=== PATIENT | female | born 1980 | race Caucasian/White ===

== ENCOUNTER 2017-08-24 10:51 | Day surgery (SDC) | payer OTHER, SELFPAY ==
[~2017-08-24] VITALS: Ht 149.9 cm; Wt 57.3 kg
[~2017-08-24 10:51] MED LIST: ALBU90OI61 INH; ALPR1 PO; AMIT50 PO; AZAT50 PO; AZIT250 PO; COLC.6 PO; ETAN25I SC; FOLI1 PO; LIDO2TG30 TOP; METTREX2.5 PO; MULVITMINE; Monodox100 MG PO; Norco 5-325 Ta1 EACH PO; OXYACE5T PO; PENT400ER; POLTRIOPSO OS; PROCODE120 PO; PROM25 PO; RANI150 PO; SERT100 PO; Zofran Odt4 MG SL; [UNRECOGNIZED DRUG - OTHER]; [UNRECOGNIZED DRUG - OTHER]; [UNRECOGNIZED DRUG - OTHER] OS
[2017-08-24] MEDS ORDERED: AMIT75 (11:25)
== END 2017-08-24 13:38 | disposition home or self-care (01) ==
LOC: ORSCSDS 10:51
PROVIDERS: Podiatrist
PROC: 0QBR0ZZ Excision of Left Toe Phalanx, Open Approach (ICD-10-PCS; principal; 2017-08-24 12:00)
PROC: 0SRQ0JZ Replacement of Left Toe Phalangeal Joint with Synthetic Substitute, Open Approach (ICD-10-PCS; principal; 2017-08-24 12:00)
DX: M20.42 Other hammer toe(s) (acquired), left foot (principal); M89.9 Disorder of bone, unspecified; L84 Corns and callosities; J45.909 Unspecified asthma, uncomplicated; K21.9 Gastro-esophageal reflux disease without esophagitis; Z79.899 Other long term (current) drug therapy
CPT/HCPCS: J0690; J1100; J1885; J2250; J2405; J3010

== ENCOUNTER 2017-09-23 13:50 | Observation (INO) | payer OTHER ==
[~2017-09-23] VITALS: Ht 149.9 cm; Wt 58.6 kg
[~2017-09-23 13:50] MED LIST changes: +AMIT75
[2017-09-23] MEDS ORDERED: PRED20 PO (14:40)
[2017-09-23 15:15] LABS: BASOPHILS ABSOLUTE AUTO 0.07 K/mm3 (0.00-0.23); BASOPHILS PERCENT AUTO 1 % (0-2); EOSINOPHILS ABSOLUTE AUTO 0.04 K/mm3 (0.00-0.68); EOSINOPHILS PERCENT AUTO 0 % (0-6); Hematocrit 42.5 % (33.0-51.0); Hemoglobin 14.3 g/dL (11.5-16.0); IMMATURE GRAN ABSOLUTE AUTO 0.05 K/mm3 (0.00-0.10); IMMATURE GRAN PERCENT AUTO 0 % (0-1); LYMPHOCYTES ABSOLUTE AUTO 1.65 K/mm3 (0.84-5.20); LYMPHOCYTES PERCENT AUTO 14 % (21-46); MONOCYTES ABSOLUTE AUTO 0.33 K/mm3 (0.16-1.47); MONOCYTES PERCENT AUTO 3 % (4-13); Mean Corpuscular HGB 28.8 pg (26.0-34.0); Mean Corpuscular HGB Conc 33.6 g/dL (31.5-36.5); Mean Corpuscular Volume 86 fL (80-100); Mean Platelet Volume 10.1 fL (9.1-12.4); NEUTROPHILS ABSOLUTE AUTO 9.72 K/mm3 (1.96-9.15); NEUTROPHILS PERCENT AUTO 82 % (41-73); Platelet Count 235 K/mm3 (150-400); RDW Coefficient Variation 12.2 % (11.7-14.2); RDW Standard Deviation 37.9 fL (35.1-46.3); Red Blood Cell Count 4.97 M/mm3 (3.80-5.20); White Blood Cell Count 11.86 K/mm3 (4.00-11.30)
[2017-09-23 15:28] LABS: Alanine Aminotransfer (ALT/SGP 14 U/L (12-78); Albumin, Blood 4.1 g/dL (3.4-5.0); Alk Phos 41 U/L (50-136); Anion Gap 9 mmol/L (6-16); Aspartate Aminotrans (AST/SGOT 9 U/L (12-37); Bilirubin, Total 0.9 mg/dL (0.1-1.0); Blood Urea Nitrogen 10 mg/dL (8-24); Bun/Creatinine Ratio 17.5 (12.0-20.0); CO2, Blood 23 mmol/L (21-32); Chloride, Blood 106 mmol/L (98-108); Creatinine, Blood 0.57 mg/dL (0.40-1.00); Glomerular Filtration Rate >60 (60-); Glucose, Blood 99 mg/dL (70-99); Potassium, Blood 3.7 mmol/L (3.5-5.5); Sodium, Blood 138 mmol/L (136-145); Total Protein, Blood 8.1 g/dL (6.4-8.2)
[2017-09-23] MEDS ORDERED: Enbrel50 MG/1 M1 (18:32)
[2017-09-23 22:11] LABS: Hematocrit 38.6 % (33.0-51.0); Hemoglobin 13.6 g/dL (11.5-16.0); Mean Corpuscular HGB 28.9 pg (26.0-34.0); Mean Corpuscular HGB Conc 35.2 g/dL (31.5-36.5); Mean Corpuscular Volume 82 fL (80-100); Mean Platelet Volume 10.3 fL (9.1-12.4); Platelet Count 233 K/mm3 (150-400); RDW Coefficient Variation 11.9 % (11.7-14.2); RDW Standard Deviation 35.8 fL (35.1-46.3); Red Blood Cell Count 4.71 M/mm3 (3.80-5.20); White Blood Cell Count 10.67 K/mm3 (4.00-11.30)
[2017-09-24 04:44] LABS: Hematocrit 38.6 % (33.0-51.0); Mean Corpuscular HGB 28.2 pg (26.0-34.0); Mean Corpuscular HGB Conc 33.7 g/dL (31.5-36.5); Mean Corpuscular Volume 84 fL (80-100); Mean Platelet Volume 10.4 fL (9.1-12.4); Platelet Count 235 K/mm3 (150-400); RDW Coefficient Variation 12.1 % (11.7-14.2); RDW Standard Deviation 36.6 fL (35.1-46.3); Red Blood Cell Count 4.61 M/mm3 (3.80-5.20); White Blood Cell Count 14.31 K/mm3 (4.00-11.30)
[2017-09-24 05:01] LABS: Anion Gap 7 mmol/L (6-16); Blood Urea Nitrogen 7 mg/dL (8-24); Bun/Creatinine Ratio 15.3 (12.0-20.0); CO2, Blood 27 mmol/L (21-32); Calcium, Blood 8.5 mg/dL (8.5-10.1); Chloride, Blood 108 mmol/L (98-108); Creatinine, Blood 0.46 mg/dL (0.40-1.00); Glomerular Filtration Rate >60 (60-); Glucose, Blood 103 mg/dL (70-99); Potassium, Blood 3.9 mmol/L (3.5-5.5); Sodium, Blood 142 mmol/L (136-145)
[2017-09-25 21:25] LABS: Source, Urine Clean Catch
[2017-09-25 21:28] LABS: Bilirubin, Urine Neg (Neg); Blood, Urine 4+ (Neg); Glucose Qualitative, Urine Neg (Neg); Ketones, Urine Neg (Neg); Leukocyte Esterase, Urine Neg (Neg); Nitrite, Urine Neg (Neg); Protein, Urine Neg (Neg); Specific Gravity, Urine 1.015 (1.003-1.022); Urobilinogen, Urine NORM (Normal)
[2017-09-25 21:31] LABS: Appearance, Urine Clear (Clear); Color, Urine Yellow (P-Yellow)
[2017-09-25 21:40] LABS: Bacteria Mod /hpf; Squamous Epithelial Cells Few /hpf (Few); White Blood Cells, Urine 0-2 /hpf (0-5)
[2017-09-26] MEDS ORDERED: NITR100CA PO (10:09)
[2017-09-26] MEDS ORDERED: PRED20 PO (10:10)
== END 2017-09-26 10:40 | disposition home or self-care (01) ==
LOC: ER 13:50 → SURS 13:51 → MEDS 13:51 → SURS 18:28
PROVIDERS: Emergency Medicine; Family Medicine; Internal Medicine; Internal Medicine Gastroenterology
PROC: 0DBN8ZX Excision of Sigmoid Colon, Via Natural or Artificial Opening Endoscopic, Diagnostic (ICD-10-PCS; 2017-09-25)
PROC: 0DBE8ZX Excision of Large Intestine, Via Natural or Artificial Opening Endoscopic, Diagnostic (ICD-10-PCS; 2017-09-25)
PROC: 0DB98ZX Excision of Duodenum, Via Natural or Artificial Opening Endoscopic, Diagnostic (ICD-10-PCS; principal; 2017-09-25 17:00)
PROC: 0DB68ZX Excision of Stomach, Via Natural or Artificial Opening Endoscopic, Diagnostic (ICD-10-PCS; 2017-09-25 17:00)
PROC: 0DB58ZX Excision of Esophagus, Via Natural or Artificial Opening Endoscopic, Diagnostic (ICD-10-PCS; 2017-09-25 17:00)
DX: K63.5 Polyp of colon (principal); M35.2 Behcet's disease; K64.8 Other hemorrhoids; K57.30 Diverticulosis of large intestine without perforation or abscess without bleeding; K92.1 Melena; R33.9 Retention of urine, unspecified; E86.0 Dehydration; Z98.890 Other specified postprocedural states
CPT/HCPCS: 36415; 80048; 80053; 81001; 85025; 85027; 86850; 86900; 86901; 87086; 88305; 88342; 96374; 99285; C9113; G0378; J2405; J3010; J7030; J7120

== ENCOUNTER → 2017-11-22 | Outpatient (CLI) | payer OTHER ==
[~2017-11-22] MED LIST changes: +Enbrel50 MG/1 M1; +NITR100CA PO; +PRED20 PO
== END | disposition home or self-care (01) ==
LOC: LAB SHORT 16:46 → LAB 16:46
PROVIDERS: Obstetrics & Gynecology Gynecology
DX: Z12.4 Encounter for screening for malignant neoplasm of cervix (principal)
CPT/HCPCS: 87624; G0123

== ENCOUNTER 2018-07-28 12:14 | Inpatient (IN) | payer OTHER ==
[~2018-07-28] VITALS: Ht 149.9 cm; Wt 48.5 kg
[~2018-07-28 12:14] MED LIST changes: -AMIT75; +AMIT75 PO
[2018-07-28 12:58] LABS: BASOPHILS ABSOLUTE AUTO 0.04 K/mm3 (0.00-0.23); BASOPHILS PERCENT AUTO 1 % (0-2); EOSINOPHILS ABSOLUTE AUTO 0.15 K/mm3 (0.00-0.68); EOSINOPHILS PERCENT AUTO 2 % (0-6); Hematocrit 40.1 % (33.0-51.0); Hemoglobin 13.6 g/dL (11.5-16.0); IMMATURE GRAN ABSOLUTE AUTO 0.02 K/mm3 (0.00-0.10); IMMATURE GRAN PERCENT AUTO 0 % (0-1); LYMPHOCYTES ABSOLUTE AUTO 2.79 K/mm3 (0.84-5.20); LYMPHOCYTES PERCENT AUTO 45 % (21-46); MONOCYTES ABSOLUTE AUTO 0.44 K/mm3 (0.16-1.47); MONOCYTES PERCENT AUTO 7 % (4-13); Mean Corpuscular HGB 28.8 pg (26.0-34.0); Mean Corpuscular HGB Conc 33.9 g/dL (31.5-36.5); Mean Corpuscular Volume 85 fL (80-100); Mean Platelet Volume 9.9 fL (9.1-12.4); NEUTROPHILS ABSOLUTE AUTO 2.76 K/mm3 (1.96-9.15); NEUTROPHILS PERCENT AUTO 45 % (41-73); Platelet Count 188 K/mm3 (150-400); RDW Coefficient Variation 13.1 % (11.7-14.2); RDW Standard Deviation 39.8 fL (35.1-46.3); Red Blood Cell Count 4.73 M/mm3 (3.80-5.20)
[2018-07-28 13:18] LABS: Alanine Aminotransfer (ALT/SGP 18 U/L (12-78); Albumin, Blood 3.7 g/dL (3.4-5.0); Albumin/Globulin Ratio 0.8 (0.8-1.8); Alk Phos 40 U/L (50-136); Anion Gap 9 mmol/L (6-16); Aspartate Aminotrans (AST/SGOT 15 U/L (12-37); Bilirubin, Total 0.5 mg/dL (0.1-1.0); Blood Urea Nitrogen 7 mg/dL (8-24); CO2, Blood 20 mmol/L (21-32); Calcium, Blood 8.3 mg/dL (8.5-10.1); Chloride, Blood 109 mmol/L (98-108); Creatinine, Blood 0.59 mg/dL (0.40-1.00); Globulin, Blood 4.5 g/dL (2.2-4.0); Glomerular Filtration Rate >60 (60-); Glucose, Blood 100 mg/dL (70-99); Potassium, Blood 3.1 mmol/L (3.5-5.5); Sodium, Blood 138 mmol/L (136-145); Total Protein, Blood 8.2 g/dL (6.4-8.2); Troponin I <0.015 ng/mL (0.000-0.040)
[2018-07-28 13:37] LABS: Influenza A Negative (NEGATIVE); Influenza B Negative (NEGATIVE)
[2018-07-28 14:07] LABS: PO2 Arterial 112 mmHg (80-100)
[2018-07-28 14:08] LABS: PCO2 Arterial 16 mmHg (35-45); pH Blood Arterial 7.62 (7.35-7.45)
[2018-07-28] MEDS ORDERED: Remicade100 MG IV (16:46)
[2018-07-28] MEDS ORDERED: PRED5 PO (16:48)
[2018-07-28] MEDS ORDERED: AZAT50 PO (16:49)
[2018-07-28] MEDS ORDERED: VITAMIN D50000 UNIT PO (16:51)
[2018-07-28 18:03] LABS: Source, Urine Clean Catch
[2018-07-28 18:32] LABS: Appearance, Urine Hazy (Clear); Bilirubin, Urine Neg (Neg); Blood, Urine Neg (Neg); Color, Urine Yellow (P-Yellow); Glucose Qualitative, Urine Neg (Neg); Ketones, Urine 2+ (Neg); Leukocyte Esterase, Urine 1+ (Neg); Nitrite, Urine Neg (Neg); Protein, Urine Neg (Neg); Specific Gravity, Urine 1.015 (1.003-1.022); Urobilinogen, Urine NORM (Normal)
[2018-07-28 18:48] LABS: U Amphetamine Screen Not Detected; U Barbituate Screen Not Detected; U Benzodiazapine Screen Not Detected; U Buprenorphine Screen Not Detected; U Cannabinoids Screen DETECTED; U Cocaine Screen Not Detected; U Methadone Screen Not Detected; U Methamphetamine Screen Not Detected; U Opiates Screen Not Detected; U Oxycodone Screen Not Detected; U Phencyclidine Screen Not Detected; U Propoxyphene Screen Not Detected
[2018-07-28 18:57] LABS: Bacteria Not Seen /hpf; Red Blood Cells, Urine Not Seen /hpf (0-2); Squamous Epithelial Cells Many /hpf (Few); White Blood Cells, Urine 0-2 /hpf (0-5)
--- NOTE | 2018-07-28 19:13 | NUR ---
SHE ARRIVED TO PCU 12 AT 1635. LUNGS DIMINISHED WITH SOME WHEEZES AND COARSENESS SCATTERED BILATERALLY. RESPIRATIONS ARE SHALLOW. BIOX WNL. RATE STABLE. A&O. PLEASANT. FAMILY ARRIVED ABOUT 40 MINUTES LATER. CONTINUOUS BIOX STARTED. SINUS TACH AT 121. ORIENTED TO ROOM. CALL LIGHT IN REACH. LATER AT 1840 SHE BECAME TACHYPNEIC AND TACHYCARDIC UP TO 160 BTS/MIN. O2 PUT ON AT 2L. I CALLED RT FOR A NEB TREATMENT. CALL PUT OUT TO MD. SHE RECEIVED ATIVAN IN ER. IT SETTLED HER DOWN. SHE HAS NONE ORDERED HERE. MRSA CLEARANCE SWABS DONE AND SENT TO LAB.
[2018-07-29 04:42] LABS: BASOPHILS ABSOLUTE AUTO 0.01 K/mm3 (0.00-0.23); BASOPHILS PERCENT AUTO 0 % (0-2); EOSINOPHILS PERCENT AUTO 0 % (0-6); Hematocrit 36.1 % (33.0-51.0); Hemoglobin 12.2 g/dL (11.5-16.0); IMMATURE GRAN ABSOLUTE AUTO 0.03 K/mm3 (0.00-0.10); IMMATURE GRAN PERCENT AUTO 0 % (0-1); LYMPHOCYTES ABSOLUTE AUTO 0.73 K/mm3 (0.84-5.20); LYMPHOCYTES PERCENT AUTO 7 % (21-46); MONOCYTES ABSOLUTE AUTO 0.13 K/mm3 (0.16-1.47); MONOCYTES PERCENT AUTO 1 % (4-13); Mean Corpuscular HGB 28.7 pg (26.0-34.0); Mean Corpuscular HGB Conc 33.8 g/dL (31.5-36.5); Mean Corpuscular Volume 85 fL (80-100); Mean Platelet Volume 10.3 fL (9.1-12.4); NEUTROPHILS ABSOLUTE AUTO 8.92 K/mm3 (1.96-9.15); NEUTROPHILS PERCENT AUTO 91 % (41-73); Platelet Count 172 K/mm3 (150-400); RDW Coefficient Variation 13.3 % (11.7-14.2); RDW Standard Deviation 40.6 fL (35.1-46.3); Red Blood Cell Count 4.25 M/mm3 (3.80-5.20); White Blood Cell Count 9.82 K/mm3 (4.00-11.30)
[2018-07-29 04:49] LABS: Alanine Aminotransfer (ALT/SGP 16 U/L (12-78); Albumin, Blood 3.2 g/dL (3.4-5.0); Albumin/Globulin Ratio 0.8 (0.8-1.8); Alk Phos 37 U/L (50-136); Anion Gap 7 mmol/L (6-16); Aspartate Aminotrans (AST/SGOT 10 U/L (12-37); Bilirubin, Total 0.9 mg/dL (0.1-1.0); Blood Urea Nitrogen 7 mg/dL (8-24); Bun/Creatinine Ratio 13.1 (12.0-20.0); CO2, Blood 21 mmol/L (21-32); Calcium, Blood 8.1 mg/dL (8.5-10.1); Chloride, Blood 113 mmol/L (98-108); Creatinine, Blood 0.54 mg/dL (0.40-1.00); Globulin, Blood 4.1 g/dL (2.2-4.0); Glomerular Filtration Rate >60 (60-); Glucose, Blood 117 mg/dL (70-99); Potassium, Blood 4.3 mmol/L (3.5-5.5); Sodium, Blood 141 mmol/L (136-145); Total Protein, Blood 7.3 g/dL (6.4-8.2)
--- NOTE | 2018-07-29 05:43 | NUR ---
SHIFT SUMMARY: PATIENT RECIEVED ATIVAN X1 PER MD ORDERS. APPROX 1HR LATER PATIENT HR IN 60'S AND 70'S AND PATIENT SLEEPING WELL. PATIENT UP TO BATHROOM X2 THIS SHIFT WITH NO ISSUES. VSS, CALL LIGHT WITHIN REACH AND USED APPROPRIATLY, BED LOW AND LOCKED AND MONITORING CLOSELY.
--- NOTE | 2018-07-29 08:50 | NUR ---
bladder scan Pt related that when she has a uti she can't void. She voided 100ml. Did a bladder scan post void. 512 ml per scanner. Pt requested a dorsey. Continue pot.
--- NOTE | 2018-07-29 14:00 | NUR ---
POST VOID BLADDER SCAN POST VOID OF 600ML. SCANNED FOR 300ML. CONTINUE POT.
--- NOTE | 2018-07-29 17:02 | NUR ---
Evening note Pt alert and oriented. Talking a blue streak with her family. No desats or HR elevation unless she moves. HR varies between 90 (when she's alone) and 110+ when family is at bedside. PT tolerated CT scan well. Pt up to bathroom. Voiding large amounts of clear, yellow urine. IVF infusing. No cough. Weaned to RA. Lungs cta. Voice quality clear and strong. Continue pot.
--- NOTE | 2018-07-29 23:24 | NUR ---
Pt gave this student permission to look through her medical records and provide care tomorrow Jul 30, 2018.
--- NOTE | 2018-07-29 23:57 | NUR ---
AT ABOUT 1950 PT COMPLAINED OF CHEST PAIN. PT REPORTS THAT PAIN IS SHARP AT CENTER OF CHEST, DOES NOT CHANGE WITH DEEP BREATH. PT DENIES NAUSEA, NO SWEATING NOTED. PER TELE SINUS TACH, NO CHANGE HEART RYTHUM, HR 120-130, PT REPORTS ANXIETY,RR 22, ALL OTHER VSS. PT ABOUT TO RECIEVE BREATHING TREATMENT, WILL MONITOR TELE AND PT STATUS.
--- NOTE | 2018-07-30 00:03 | NUR ---
PT CONTINUED TO REPORT CP AFTER BREATHING TREATMENT. NO CHANGE IN PT DISCRIBED SYMPTOMS. DR. NEELY NOTIFIED AND RECOMMENDED AN ADDTIONAL BREATHING TREATMENT. TREATMENT GIVEN AND PT ENCOURAGED TO RELAX, SHE STILL SEEMED PRETTY ANXIOUS. HR 110-130. PT ABLE TO CALM DOWN AND REST AFTER TREATMENT AND REPORTED NO MORE CHEST PAIN AT ABOUT 2130. WILL CONTINUE TO MONITOR PT STATUS, PT HR CURRENTLY 114, PT AT APPEARS TO BE SLEEPING
--- NOTE | 2018-07-30 04:17 | NUR ---
SUMMARY: SEE PREVIOUS NOTES. NO FUTHER COMPLAINT OF CHEST PAIN THIS SHIFT. PT GIVEN 0.25MG OF ATIVAN AND ABLE TO SLEEP. HR TRENDED DOWN WHILE ASLEEP. VSS THIS AM. PT CONTINUES ON RA, LUNGS CLEAR. PRN BREATHING TREATMENTS. PT HAS DENIED SOB TONIGHT. ABLE TO VOID, UP TO COMMODE WITH SBA. A/O USING CALL LIGHT. NO ACUTE SAFETY CONCERNS AT THIS TIME
--- NOTE | 2018-07-30 10:25 | NUR ---
Patient was lying in bed and alert as I entered the room. I introduced myself and patient welcomed me in. Therapeutic alliance was easily established as pateint openly shared about her health history, her so and her emotional struggles. I listened empathically, I facilitated life review, explored her belief system, reinforced helpful attitudes and practices and provided prayer. Patient responded well and showed signs of restored health, reduced stress and renwewed hope. Patient expressed gratitude for the visit.
--- NOTE | 2018-07-30 17:48 | NUR ---
BLADDER SCAN POST VOID 376 ML. PT DOESN'T FEEL LIKE SHE NNEDS TO VOID. CONTINUE POT.
--- NOTE | 2018-07-30 19:30 | NUR ---
ASSUMING CARE OF PT AT THIS TIME. PT REPORT RECEIVED AT BEDSIDE WITH OFFGOING NURSE, LIBBY ROMANO. PT LAYING IN BED, WATCHING TELEVISION UPON ENTERING THE ROOM. VS STABLE - SEE VS FS. PT DOES NOT APPEAR TO BE IN DISTRESS AT THIS TIME. WILL REVIEW PLAN OF CARE.
--- NOTE | 2018-07-30 19:45 | NUR ---
ASSESSMENT PT CALM, QUIET, COOPERATIVE, OCC ANXIETY, RESPONDS TO VERBAL STIMULI, SPONT OPENS EYES, A&O X4, COMMUNICATES NEEDS. SENSATION INTACT. DENIES N/T. PT BAH. NO WEAKNESS NOTED. PT REPOSITIONS SELF IN BED. PT AMBULATES SELF. PT DENIES PAIN/DISCOMFORT. NO S/SX OF PAIN/DISCOMFORT NOTED. LUNGS CLEAR, LOWER LOBES DIMINISHED. PT ON RA. OXY SAT >95%. RR 14. DYSPNEA AND TACHYPNEA WITH EXERTION. SHALLOW BREATHING. PT STATES "FEELING WHEEZY" AND REQUESTED BREATHING TX UPON ASSUMING CARE OF PT. NO WHEEZING NOTED AT THIS TIME. NO SOB AT REST. AFEBRILE. ST. HR 110'S. BP STABLE - SEE VS FS. INCREASED HR NOTED WITH ACTIVITY. STRONG PULSES. WARM, PINK SKIN. ACTIVE BT X4 QUADRANTS. ABD SOFT, NONTENDER. PT STATES ABD DIST IS NORMAL. NO N/V. NO BM. PER REPORT - PT HAS BEEN EXPERIEICING URINARY RETENTION. WILL BLADDER SCAN POST VOID. PT HAS BATHROOM PRIVELEGES - CLEAR, YELLOW URINE NOTED. WILL COMPLETE BLADDER TRAINING. PIV X1 - SL.
--- NOTE | 2018-07-31 06:04 | NUR ---
SHIFT ASSESSMENT NO ACUTE CHANGES NOTED T/O SHIFT. PT CALM, QUIET, COOPERATIVE, OCC ANXIETY (PRN ATIVAN ADMINISTERED), RESPONDS TO VERBAL STIMULI, SPONT OPENS EYES, A&O X4, COMMUNICATES NEEDS. SENSATION INTACT. DENIES N/T. PT BAH. NO WEAKNESS NOTED. PT REPOSITIONS SELF. PT AMBULATES SELF. PT DENIED PAIN/DISCOMFORT. NO S/SX OF PAIN/DISCOMFORT NOTED. LUNGS CLEAR, LOWER LOBES DIMINIHSED. PT ON RA. OXY SAT >95%. RR 12 TO 14. DYSPNEA AND TACHYPNEA WITH EXERTION. SHALLOW BREATHING. LESS DYSPNEA AND TACHYPNEA NOTED THIS AM WITH EXERTION. NO SOB AT REST. AFEBRILE. SR TO ST. HR 70'S TO 110'S. INCREASED HR NOTED WITH ACTIVITY. BP STABLE - SEE VS FS. STRONG PULSES. WARM, PINK SKIN. STRONG PULSES. WARM, PINK SKIN. ACTIVE BT X4 QUADRANTS. ABD SOFT, NONTENDER. PT STATES ABD DIST IS NORMAL. NO N/V. URINARY RENTENTION. COMPLETED BLADDER SCANS POST VOID. PT HAS BATHROOM PRIVELEGES - CLEAR, YELLOW URINE NOTED. PT VOIDED LAST AT 0600 WHEN PT VOIDED 600 ML. POST BLADDER SCAN AT 0600 WAS 67 ML. HOWEVER, AT 0430 PT VOIDED 540 ML. POST BLADDER SCAN AT 0430 WAS 437 ML. PT STATED, "I DON'T FEEL LIKE I HAVE TO GO PEE". PT VOIDED ADDITIONAL 300 ML AT 0440. POST BLADDER SCAN AT 0440 WAS 127 ML. PIV X1 - SL. WILL CONT TO MONITOR PT AND WILL PROVIDE BEDSIDE REPORT TO ONCOMING NURSE THIS AM.
--- NOTE | 2018-07-31 06:30 | NUR ---
PT CARE PT OOB FOR BATHROOM PRIVELGES. PT VOIDS 540 ML AT THIS TIME. POST VOID BLADDER SCAN WAS 173 ML. INCREASED RR 20'S. PT C/O DYSPNEA WITH EXERTION AND REQUESTED BREATHING TX. RT CHRISTA NOTIFIED OF BREATHING TX. WAITING FOR RT AT THIS TIME. HR INCREASED 150'S DURING AMBULATION. HR CURRENTLY 70'S TO 80'S.
--- NOTE | 2018-07-31 08:30 | NUR ---
Initial assessment: Pt sitting up in bed. Tachypnic at this time. LS clear with faint insp wheeze in upper lobes. States that she is feeling a little SOB. RT called for a breathing treatment. BIox 98% on RA. Pt is coughing up stallworth appearing sputum. Will send sputum culture. HR reg. BT positive. Pulses palp. Pt states that she is having some sharp, stabbing pain to L lower chest "just under my L breast". states the pain is sharpest right after coughing. Rates it a 4/10. VSS. Pt has call light in reach. Will continue to monitor.
[2018-07-31 09:06] LABS: BASOPHILS ABSOLUTE AUTO 0.01 K/mm3 (0.00-0.23); BASOPHILS PERCENT AUTO 0 % (0-2); EOSINOPHILS PERCENT AUTO 0 % (0-6); Hematocrit 37.8 % (33.0-51.0); Hemoglobin 12.6 g/dL (11.5-16.0); IMMATURE GRAN ABSOLUTE AUTO 0.06 K/mm3 (0.00-0.10); IMMATURE GRAN PERCENT AUTO 1 % (0-1); LYMPHOCYTES ABSOLUTE AUTO 3.52 K/mm3 (0.84-5.20); LYMPHOCYTES PERCENT AUTO 30 % (21-46); MONOCYTES ABSOLUTE AUTO 0.82 K/mm3 (0.16-1.47); MONOCYTES PERCENT AUTO 7 % (4-13); Mean Corpuscular HGB 28.1 pg (26.0-34.0); Mean Corpuscular HGB Conc 33.3 g/dL (31.5-36.5); Mean Corpuscular Volume 84 fL (80-100); Mean Platelet Volume 10.3 fL (9.1-12.4); NEUTROPHILS ABSOLUTE AUTO 7.53 K/mm3 (1.96-9.15); NEUTROPHILS PERCENT AUTO 63 % (41-73); Platelet Count 210 K/mm3 (150-400); RDW Coefficient Variation 13.9 % (11.7-14.2); RDW Standard Deviation 42.5 fL (35.1-46.3); Red Blood Cell Count 4.48 M/mm3 (3.80-5.20); White Blood Cell Count 11.94 K/mm3 (4.00-11.30)
--- NOTE | 2018-07-31 12:55 | NUR ---
Patient was lying in bed and alert when I entered the room. Patient remembered me from a prior visit. Patient stated that she had a rough night and had to have an extended stay in the hospital. Patient shared her current struggle with the emotional issues involved in long difficult physical pain and limitations. I litened empathically, provided spiritual direction provided inspirational guitar and singing and prayer. Patient responed well to all interventions and displayed evidence of restored so and reduced stress. Patient expressed gratitude for the visit.
[2018-07-31] MEDS ORDERED: TAMS.4ER PO (16:00)
[2018-07-31] MEDS ORDERED: ALBU90OI INH (16:01)
[2018-07-31] MEDS ORDERED: ALPR.5 PO (16:02)
[2018-07-31] MEDS ORDERED: VENL37.5 PO (16:03)
[2018-07-31] MEDS ORDERED: AZIT250 PO (16:04)
[2018-07-31] MEDS ORDERED: GUAI600T33 PO (16:05)
[2018-07-31] MEDS ORDERED: PRED10 PO (16:06)
[2018-07-31] MEDS ORDERED: ALBU2.5V5 NEB (16:09)
--- NOTE | 2018-07-31 16:50 | NUR ---
DISCHARGE: Pt given verbal and written discharge instructions, verbalized understanding, denies questions. RX were faxed and then called to [facility] [address]. Pt knows to follow up with physicians within one week. Stable at time of discharge. Left via w/c with DOCUMENT IMPROVEMENT SPECIALIST.
[2018-08-03 10:11] LABS: AMITRIPTYLINE Negative (Cutoff=100); CLOMIPRAMINE Negative (Cutoff=100); CYCLOBENZAPRINE Negative (Cutoff=100); DESIPRAMINE Negative (Cutoff=100); DOXEPIN Negative (Cutoff=100); IMIPRAMINE Negative (Cutoff=100); NORDOXEPIN Negative (Cutoff=100); NORTRIPTYLINE Positive (.); NORTRIPTYLINE CONF 219 ng/mL (Cutoff=100); PROTRIPTYLINE Negative (Cutoff=100); TRICYCLIC ANTIDEP Positive ng/mL (Cutoff=100); TRIMIPRAMINE Negative (Cutoff=100)
== END 2018-07-31 16:44 | disposition home or self-care (01) | DRG 202 ==
LOC: ER 12:14 → PCU 14:45
PROVIDERS: Emergency Medicine; Family Medicine; ADMIT Internal Medicine
DX: J98.09 Other diseases of bronchus, not elsewhere classified (principal); E87.2 Acidosis; M35.2 Behcet's disease; R00.0 Tachycardia, unspecified; F12.90 Cannabis use, unspecified, uncomplicated; T48.6X5A Adverse effect of antiasthmatics, initial encounter; Y92.9 Unspecified place or not applicable; R06.4 Hyperventilation; R33.9 Retention of urine, unspecified; F41.9 Anxiety disorder, unspecified; E87.6 Hypokalemia; J40 Bronchitis, not specified as acute or chronic; D89.9 Disorder involving the immune mechanism, unspecified; E86.9 Volume depletion, unspecified
CPT/HCPCS: 36415; 36600; 51701; 71045; 71275; 80053; 80369; 81001; 81025; 82803; 83735; 84443; 84484; 85025; 85379; 87081; 87086; 87804; 93005; 93010; 93306; 94640; 94644; 94760; 94762; 96361; 96374; 96375; 99284-25; G0480; G0481; J1650; J1956; J2060; J2405; J2930; J3010; J3480; Q9967

== ENCOUNTER 2018-11-01 06:25 | Emergency (ER) | payer OTHER ==
[~2018-11-01] VITALS: Ht 149.9 cm; Wt 59.0 kg
[~2018-11-01 06:25] MED LIST changes: +ALBU2.5V5 NEB; +ALBU90OI INH; +ALPR.5 PO; +GUAI600T33 PO; +PRED10 PO; +PRED5 PO; +Remicade100 MG IV; +TAMS.4ER PO; +VENL37.5 PO; +VITAMIN D50000 UNIT PO
== END 2018-11-01 07:36 | disposition home or self-care (01) ==
LOC: ER 06:25
DX: S00.86XA Insect bite (nonvenomous) of other part of head, initial encounter (principal); Z79.52 Long term (current) use of systemic steroids; Z79.2 Long term (current) use of antibiotics; W57.XXXA Bitten or stung by nonvenomous insect and other nonvenomous arthropods, initial encounter
CPT/HCPCS: 10120; 99282-25

== ENCOUNTER → 2019-02-01 | Outpatient (CLI) | payer OTHER ==
[2019-02-04 19:05] LABS: HPV 16 Negative (Negative); HPV 18 Negative (Negative); HPV OTHER HR TYPES Negative (Negative)
== END | disposition home or self-care (01) ==
LOC: LAB 13:57 → LAB SHORT 13:57
PROVIDERS: Obstetrics & Gynecology Gynecology
DX: Z12.4 Encounter for screening for malignant neoplasm of cervix (principal)
CPT/HCPCS: 87624; G0123

== ENCOUNTER → 2019-02-06 | Outpatient (CLI) | payer OTHER | LOC: PLD 08:09 → LAB SHORT 08:09 | DX: L30.8 Other specified dermatitis (principal) | CPT/HCPCS: 88305; 88312 ==

== ENCOUNTER 2019-02-08 07:54 | Day surgery (SDC) | payer OTHER ==
[~2019-02-08] VITALS: Ht 149.9 cm; Wt 56.6 kg
[2019-02-08] MEDS ORDERED: FOLI1 PO (08:36)
== END 2019-02-08 10:28 | disposition home or self-care (01) ==
LOC: ORSCSDS 07:54
PROVIDERS: Internal Medicine Gastroenterology
PROC: 0DB68ZX Excision of Stomach, Via Natural or Artificial Opening Endoscopic, Diagnostic (ICD-10-PCS; principal; 2019-02-08 09:15)
PROC: 0DBA8ZX Excision of Jejunum, Via Natural or Artificial Opening Endoscopic, Diagnostic (ICD-10-PCS; principal; 2019-02-08 09:15)
DX: K90.0 Celiac disease (principal); R10.13 Epigastric pain; K62.5 Hemorrhage of anus and rectum; K64.8 Other hemorrhoids; J45.909 Unspecified asthma, uncomplicated; I10 Essential (primary) hypertension; Z79.899 Other long term (current) drug therapy
CPT/HCPCS: 88305; 88342; J2704; J7120

== ENCOUNTER 2019-08-09 07:17 | Day surgery (SDC) | payer OTHER ==
[~2019-08-09] VITALS: Ht 149.9 cm; Wt 55.8 kg
== END 2019-08-09 09:10 | disposition home or self-care (01) ==
LOC: ORSCSDS 07:17
PROVIDERS: Internal Medicine Gastroenterology
PROC: 0D758ZZ Dilation of Esophagus, Via Natural or Artificial Opening Endoscopic (ICD-10-PCS; principal; 2019-08-09 08:30)
PROC: 0DB58ZX Excision of Esophagus, Via Natural or Artificial Opening Endoscopic, Diagnostic (ICD-10-PCS; principal; 2019-08-09 08:30)
DX: R13.10 Dysphagia, unspecified (principal); K21.9 Gastro-esophageal reflux disease without esophagitis; M35.2 Behcet's disease; J45.909 Unspecified asthma, uncomplicated; Z79.899 Other long term (current) drug therapy
CPT/HCPCS: 88305; J2405; J2704; J7120

== ENCOUNTER 2019-08-09 10:17 | Emergency (ER) | payer OTHER ==
[~2019-08-09] VITALS: Ht 149.9 cm; Wt 55.8 kg
== END 2019-08-09 11:19 | disposition home or self-care (01) ==
LOC: ER 10:17
DX: R33.9 Retention of urine, unspecified (principal); Z79.899 Other long term (current) drug therapy
CPT/HCPCS: 51702; 99283-25

== ENCOUNTER 2020-07-22 06:58 | Emergency (ER) | payer OTHER ==
[~2020-07-22] VITALS: Ht 147.3 cm; Wt 50.8 kg
[2020-07-22] MEDS ORDERED: IMITREX50 M1 PO (07:29)
[2020-07-22] MEDS ORDERED: AMIT75 PO (07:29)
[2020-07-22] MEDS ORDERED: HYDROCODONE-AC1 EAC7 PO (07:30)
[2020-07-22 08:11] LABS: BASOPHILS ABSOLUTE AUTO 0.05 K/mm3 (0.00-0.23); BASOPHILS PERCENT AUTO 1 % (0-2); EOSINOPHILS ABSOLUTE AUTO 0.11 K/mm3 (0.00-0.68); EOSINOPHILS PERCENT AUTO 2 % (0-6); Hematocrit 38.2 % (33.0-51.0); Hemoglobin 13.3 g/dL (11.5-16.0); IMMATURE GRAN ABSOLUTE AUTO 0.02 K/mm3 (0.00-0.10); IMMATURE GRAN PERCENT AUTO 0 % (0-1); LYMPHOCYTES ABSOLUTE AUTO 1.85 K/mm3 (0.84-5.20); LYMPHOCYTES PERCENT AUTO 29 % (21-46); MONOCYTES ABSOLUTE AUTO 0.44 K/mm3 (0.16-1.47); MONOCYTES PERCENT AUTO 7 % (4-13); Mean Corpuscular HGB 30.2 pg (26.0-34.0); Mean Corpuscular HGB Conc 34.8 g/dL (31.5-36.5); Mean Corpuscular Volume 87 fL (80-100); Mean Platelet Volume 11.4 fL (9.1-12.4); NEUTROPHILS ABSOLUTE AUTO 3.92 K/mm3 (1.96-9.15); NEUTROPHILS PERCENT AUTO 61 % (41-73); Platelet Count 229 K/mm3 (150-400); RDW Coefficient Variation 12.1 % (11.7-14.2); RDW Standard Deviation 39.1 fL (35.1-46.3); White Blood Cell Count 6.39 K/mm3 (4.00-11.30)
[2020-07-22 08:24] LABS: Alanine Aminotransfer (ALT/SGP 15 U/L (12-78); Albumin, Blood 3.8 g/dL (3.4-5.0); Alk Phos 30 U/L (50-136); Anion Gap 7 mmol/L (6-16); Aspartate Aminotrans (AST/SGOT 16 U/L (12-37); Beta HCG, Quantitative, Serum <1 mIU/mL (0-3); Blood Urea Nitrogen 7 mg/dL (8-24); Bun/Creatinine Ratio 13.8 (12.0-20.0); CO2, Blood 22 mmol/L (21-32); Calcium, Blood 8.8 mg/dL (8.5-10.1); Chloride, Blood 113 mmol/L (98-108); Creatinine, Blood 0.51 mg/dL (0.40-1.00); Globulin, Blood 3.7 g/dL (2.2-4.0); Glomerular Filtration Rate >60 (60-); Glucose, Blood 94 mg/dL (70-99); Potassium, Blood 3.7 mmol/L (3.5-5.5); Sodium, Blood 142 mmol/L (136-145); Total Protein, Blood 7.5 g/dL (6.4-8.2)
[2020-07-22 08:25] LABS: Source, Urine Voided
[2020-07-22 08:28] LABS: Bilirubin, Urine Neg (Neg); Blood, Urine Neg (Neg); Glucose Qualitative, Urine Neg (Neg); Ketones, Urine 1+ (Neg); Leukocyte Esterase, Urine 1+ (Neg); Nitrite, Urine Neg (Neg); Protein, Urine Neg (Neg); Urobilinogen, Urine NORM (Normal)
[2020-07-22 08:36] LABS: Appearance, Urine Hazy (Clear); Color, Urine Yellow (P-Yellow)
[2020-07-22 08:38] LABS: Bacteria Rare /hpf; Red Blood Cells, Urine Not Seen /hpf (0-2); Squamous Epithelial Cells Few /hpf (Few); White Blood Cells, Urine 0-2 /hpf (0-5)
[2020-07-22 08:40] LABS: U Amphetamine Screen Not Detected; U Barbituate Screen Not Detected; U Benzodiazapine Screen Not Detected; U Buprenorphine Screen Not Detected; U Cannabinoids Screen DETECTED; U Cocaine Screen Not Detected; U Methadone Screen Not Detected; U Methamphetamine Screen Not Detected; U Opiates Screen Not Detected; U Oxycodone Screen Not Detected; U Phencyclidine Screen Not Detected
[2020-07-22 08:41] LABS: U Propoxyphene Screen Not Detected
[2020-07-22] MEDS ORDERED: PRED20 PO (13:08)
[2020-11-27] MEDS ORDERED: FOLI1 PO (10:27)
[2020-11-27] MEDS ORDERED: PRED20 PO (10:27)
[2020-11-27] MEDS ORDERED: OXYB5 PO (10:27)
[2020-11-27] MEDS ORDERED: ALBU2.5V5 INH (10:27)
[2020-11-27] MEDS ORDERED: Norco 7.5-3251 EACH PO (10:27)
[2020-11-27] MEDS ORDERED: ALBU90OI INH (10:28)
== END 2020-07-22 14:00 | disposition home or self-care (01) ==
LOC: ER 06:58
PROVIDERS: Emergency Medicine
DX: K52.9 Noninfective gastroenteritis and colitis, unspecified (principal); M35.2 Behcet's disease; Z79.899 Other long term (current) drug therapy; R63.4 Abnormal weight loss; N83.202 Unspecified ovarian cyst, left side; N83.201 Unspecified ovarian cyst, right side; Z79.52 Long term (current) use of systemic steroids
CPT/HCPCS: 74177; 80053; 81001; 83735; 84702; 85025; 87086; 96361; 96374; 96375; 99284-25; J2405; J2930; J7120; Q9967

== ENCOUNTER 2021-05-11 07:44 | Day surgery (SDC) | payer MEDICARE, OTHER ==
[2021-05-10 12:44] LABS: BASOPHILS ABSOLUTE AUTO 0.07 K/mm3 (0.00-0.23); BASOPHILS PERCENT AUTO 1 % (0-2); EOSINOPHILS ABSOLUTE AUTO 0.09 K/mm3 (0.00-0.68); EOSINOPHILS PERCENT AUTO 2 % (0-6); Hematocrit 38.5 % (33.0-51.0); Hemoglobin 13.3 g/dL (11.5-16.0); IMMATURE GRAN ABSOLUTE AUTO 0.02 K/mm3 (0.00-0.10); IMMATURE GRAN PERCENT AUTO 0 % (0-1); LYMPHOCYTES PERCENT AUTO 37 % (21-46); MONOCYTES PERCENT AUTO 8 % (4-13); Mean Corpuscular HGB 30.8 pg (26.0-34.0); Mean Corpuscular HGB Conc 34.5 g/dL (31.5-36.5); Mean Corpuscular Volume 89 fL (80-100); Mean Platelet Volume 10.2 fL (9.1-12.4); NEUTROPHILS ABSOLUTE AUTO 2.53 K/mm3 (1.96-9.15); NEUTROPHILS PERCENT AUTO 52 % (41-73); Platelet Count 204 K/mm3 (150-400); RDW Coefficient Variation 14.9 % (11.7-14.2); Red Blood Cell Count 4.32 M/mm3 (3.80-5.20); White Blood Cell Count 4.91 K/mm3 (4.00-11.30)
[2021-05-10 14:01] LABS: Anion Gap 5 mmol/L (6-16); Blood Urea Nitrogen 7 mg/dL (8-24); Bun/Creatinine Ratio 10.9 (12.0-20.0); CO2, Blood 23 mmol/L (21-32); Calcium, Blood 8.6 mg/dL (8.5-10.1); Chloride, Blood 112 mmol/L (98-108); Creatinine, Blood 0.65 mg/dL (0.40-1.00); Glomerular Filtration Rate >60 (60-); Glucose, Blood 85 mg/dL (70-99); Potassium, Blood 3.9 mmol/L (3.5-5.5); Sodium, Blood 140 mmol/L (136-145)
[~2021-05-11] VITALS: Ht 149.9 cm; Wt 52.2 kg
[~2021-05-11 07:44] MED LIST changes: +ALBU2.5V5 INH; +HYDROCODONE-AC1 EAC7 PO; +IMITREX50 M1 PO; +Norco 7.5-3251 EACH PO; +OXYB5 PO
[2021-05-11] MEDS ORDERED: SIMPONI AR50 MG/4 M1 IV (08:21)
--- NOTE | 2021-05-11 09:26 | NUR ---
Patient up to Ambulate independently. Gait steady. Maria Luisa Paws warming gown applied. Surgical site prepped with 2% Chlorhexidine cloth wipe. History, Chart, Medications and Allergies reviewed before start of procedure.Lungs clear T/O to Auscultation. Patient confirms NPO status and agrees with scheduled surgery. Pre-Op teaching done. Pt verbalizes understanding. Patient States Post-Procedure ride home has been arranged. Patient reports completing Chlorhexadine shower X2 prior to admission to hospital.
--- NOTE | 2021-05-11 11:03 | NUR ---
05/11/21 1103 Devora Yanez PATIENT ARRIVED TO OR PRIOR TO SURGERY WITH NOTED REDDENED RASH ON CHEST. PATIENT STATED RASH HAS BEEN ASPHALT MACHINE OPERATOR AND IS BEING TREATED WITH PRESCRIBED STERIODS BY .
--- NOTE | 2021-05-11 16:01 | NUR ---
RESTING WELL. TOLERATED CLEAR LIQUIDS AND SOME CRACKERS WELLS. NO COMPLAINTS AT THIS TIME. SLEEPING ON AND OFF.
--- NOTE | 2021-05-11 17:33 | NUR ---
PT SAT UP AT SIDE AT BED AND STOOD FOR A FEW MINUTES. TOLERATED WELL. 4 ABDOMINAL INCISIONS C/D/I. MAJORITY OF PAIN IN UNDER RIGHT RIB AREA. PT WILL MOVE AND STAND AGAIN TO GET GAS MOVING SOON. INCENTIVE SPIROMETER AT BEDSIDE AND INSTRUCED ON USE. PAS REMAIN ON. GOOD URINE OUTPUT. VSS. AT BEDSIDE AT THIS TIME.
[2021-05-12 05:37] LABS: BASOPHILS ABSOLUTE AUTO 0.03 K/mm3 (0.00-0.23); BASOPHILS PERCENT AUTO 0 % (0-2); EOSINOPHILS ABSOLUTE AUTO 0.17 K/mm3 (0.00-0.68); EOSINOPHILS PERCENT AUTO 2 % (0-6); Hematocrit 35.3 % (33.0-51.0); IMMATURE GRAN ABSOLUTE AUTO 0.04 K/mm3 (0.00-0.10); IMMATURE GRAN PERCENT AUTO 1 % (0-1); LYMPHOCYTES ABSOLUTE AUTO 1.57 K/mm3 (0.84-5.20); LYMPHOCYTES PERCENT AUTO 20 % (21-46); MONOCYTES ABSOLUTE AUTO 0.44 K/mm3 (0.16-1.47); MONOCYTES PERCENT AUTO 6 % (4-13); Mean Corpuscular HGB 30.4 pg (26.0-34.0); Mean Corpuscular Volume 89 fL (80-100); Mean Platelet Volume 9.7 fL (9.1-12.4); NEUTROPHILS ABSOLUTE AUTO 5.53 K/mm3 (1.96-9.15); NEUTROPHILS PERCENT AUTO 71 % (41-73); Platelet Count 152 K/mm3 (150-400); RDW Coefficient Variation 14.8 % (11.7-14.2); RDW Standard Deviation 48.2 fL (35.1-46.3); Red Blood Cell Count 3.95 M/mm3 (3.80-5.20); White Blood Cell Count 7.78 K/mm3 (4.00-11.30)
[2021-05-12] MEDS ORDERED: Percocet 5-3251 EACH PO (07:19)
[2021-05-12] MEDS ORDERED: PROM25 PO (07:20)
--- NOTE | 2021-05-12 07:53 | NUR ---
PATIENT REQUESTS THAT I NOT REMOVE HER CATHETER UNTIL AFTER HER NEXT DOSE OF PAIN MEDICATIONS
--- NOTE | 2021-05-12 09:59 | NUR ---
0945 dorsey cath dcd. patient tolerated well
--- NOTE | 2021-05-12 10:51 | NUR ---
0830 C/O GAS PAIN. AMBULATED IN GEE FROM ROOM 131 TO DOCTORS DICTATION ROOM AND BACK TO BED. DENIES PASSING FLATUS
--- NOTE | 2021-05-12 12:50 | NUR ---
1230 OOB UNASSISTED TO BATHROOM, TOLERATED WELL. SPONTANEOUS VOID OF 300 CC'S
--- NOTE | 2021-05-12 14:30 | NUR ---
PT DISCHARGED TO HOME, W/C TO CAR WITH . DISCHARGE INSTRUCTIONS SIGNED. RX IN PT HAND.
== END 2021-05-12 14:25 | disposition home or self-care (01) ==
LOC: ORSCMMR 07:44 → ORD 09:15 → BC 14:06 → ORSCMMR 05-12 14:25
PROVIDERS: Obstetrics & Gynecology
PROC: 0UT94ZZ Resection of Uterus, Percutaneous Endoscopic Approach (ICD-10-PCS; principal; 2021-05-11 09:15)
PROC: 8E0W4CZ Robotic Assisted Procedure of Trunk Region, Percutaneous Endoscopic Approach (ICD-10-PCS; principal; 2021-05-11 09:15)
PROC: 0DNU4ZZ Release Omentum, Percutaneous Endoscopic Approach (ICD-10-PCS; principal; 2021-05-11 09:15)
PROC: 0UT74ZZ Resection of Bilateral Fallopian Tubes, Percutaneous Endoscopic Approach (ICD-10-PCS; principal; 2021-05-11 09:15)
DX: M35.2 Behcet's disease (principal); N94.6 Dysmenorrhea, unspecified; R10.2 Pelvic and perineal pain; Q50.5 Embryonic cyst of broad ligament; N73.6 Female pelvic peritoneal adhesions (postinfective); N80.3 Endometriosis of pelvic peritoneum; J45.909 Unspecified asthma, uncomplicated; F41.8 Other specified anxiety disorders; Z79.899 Other long term (current) drug therapy
CPT/HCPCS: 58571; 58662; 49329; S2900; 36415; 80048; 85025; 86850; 86900; 86901; 88305; 88307; A9270; J0690; J2250; J2270; J7120; J7500; J7512

== ENCOUNTER → 2022-05-04 | Outpatient (CLI) | payer MEDICARE, OTHER ==
[~2022-05-04] MED LIST changes: +Percocet 5-3251 EACH PO; +SIMPONI AR50 MG/4 M1 IV
[2022-05-04 11:54] LABS: BASOPHILS ABSOLUTE AUTO 0.09 K/mm3 (0.00-0.23); BASOPHILS PERCENT AUTO 1 % (0-2); EOSINOPHILS ABSOLUTE AUTO 0.08 K/mm3 (0.00-0.68); EOSINOPHILS PERCENT AUTO 1 % (0-6); Hematocrit 43.4 % (33.0-51.0); IMMATURE GRAN ABSOLUTE AUTO 0.03 K/mm3 (0.00-0.10); IMMATURE GRAN PERCENT AUTO 0 % (0-1); LYMPHOCYTES ABSOLUTE AUTO 2.68 K/mm3 (0.84-5.20); LYMPHOCYTES PERCENT AUTO 32 % (21-46); MONOCYTES ABSOLUTE AUTO 0.73 K/mm3 (0.16-1.47); MONOCYTES PERCENT AUTO 9 % (4-13); Mean Corpuscular HGB 29.1 pg (26.0-34.0); Mean Corpuscular HGB Conc 34.6 g/dL (31.5-36.5); Mean Corpuscular Volume 84 fL (80-100); Mean Platelet Volume 10.1 fL (9.1-12.4); NEUTROPHILS ABSOLUTE AUTO 4.78 K/mm3 (1.96-9.15); NEUTROPHILS PERCENT AUTO 57 % (41-73); Platelet Count 257 K/mm3 (150-400); RDW Coefficient Variation 12.3 % (11.7-14.2); RDW Standard Deviation 37.1 fL (35.1-46.3); Red Blood Cell Count 5.16 M/mm3 (3.80-5.20); White Blood Cell Count 8.39 K/mm3 (4.00-11.30)
[2022-05-04 12:03] LABS: Albumin, Blood 4.1 g/dL (3.4-5.0); Bilirubin, Total 0.7 mg/dL (0.1-1.0); Bun/Creatinine Ratio 23.2 (12.0-20.0); Calcium, Blood 9.1 mg/dL (8.5-10.1); Creatinine, Blood 0.56 mg/dL (0.40-1.00); Globulin, Blood 4.3 g/dL (2.2-4.0); Potassium, Blood 3.7 mmol/L (3.5-5.5); Total Protein, Blood 8.4 g/dL (6.4-8.2)
== END | disposition home or self-care (01) ==
LOC: LAB SHORT 11:48 → LAB 11:48
PROVIDERS: Physician Assistant
DX: J04.0 Acute laryngitis (principal)
CPT/HCPCS: 80053; 85025

== ENCOUNTER 2023-04-03 07:18 | Day surgery (SDC) | payer MEDICARE, OTHER ==
[~2023-04-03] VITALS: Ht 149.9 cm; Wt 55.7 kg
[2023-04-03] VITALS (9 sets, daily range): BP systolic 109–127; BP diastolic 78–96
[~2023-04-03 07:18] MED LIST changes: +CLIMARA1 EACH TOP; +Hydrocodone-Ap1 EA26 PO; +OXYC5 PO; +PANT40 PO; +RENFLEXIS100 M1; +RENFLEXIS100 M1 IV
--- NOTE | 2023-04-03 08:12 | NUR ---
Ambulatory in Day Surgery. History, Chart, Medications and Allergies reviewed before start of procedure. Lungs clear T/O to Auscultation. Patient confirms NPO status and agrees with scheduled surgery. Pre-Op teaching done. Pt verbalizes understanding. Patient States Post-Procedure ride home has been arranged. PT BELONGINGS PLACED UNDERNEATH GURNEY FOR SAFEKEEPING. PT JEWERY GIVEN TO FOR SAFEKEEPING.
--- NOTE | 2023-04-03 09:09 | NUR ---
04/03/23 0908 Devora Yanez NO PREOP ANTIBIOTICS ORDERED PER .
--- NOTE | 2023-04-03 10:35 | NUR ---
Patient up to Ambulate independently. Gait steady. Discharge instructions reviewed with patient. Patient verbalizes understanding. Copy given to patient to take home, WELL FAMILY. Patient States Post-Procedure ride home has been arranged. Discharged via wheelchair to private car for ride home. SILVA BOTTLE SENT WITH PT, WELL SILVA PADS AND MADONNA PANTIES.
== END 2023-04-03 10:35 | disposition home or self-care (01) ==
LOC: ORSCMMR 07:18 → ORD 08:45 → ORSCMMR 10:35
PROVIDERS: Surgery
PROC: 3E023GC Introduction of Other Therapeutic Substance into Muscle, Percutaneous Approach (ICD-10-PCS; principal; 2023-04-03 08:45)
PROC: 3E0H7GC Introduction of Other Therapeutic Substance into Lower GI, Via Natural or Artificial Opening (ICD-10-PCS; principal; 2023-04-03 08:45)
DX: K60.2 Anal fissure, unspecified (principal); K62.4 Stenosis of anus and rectum; J45.909 Unspecified asthma, uncomplicated; Z79.899 Other long term (current) drug therapy
CPT/HCPCS: A9270; J0585; J1100; J2250; J2405; J3010; J7120

== ENCOUNTER 2023-05-04 06:23 | Day surgery (SDC) | payer MEDICARE, OTHER ==
[2023-05-04] VITALS (10 sets, daily range): BP systolic 108–141; BP diastolic 83–99
[~2023-05-04] VITALS: Ht 149.9 cm; Wt 55.5 kg
[~2023-05-04 06:23] MED LIST changes: -IMITREX50 M1 PO; +LIDO5TO; +NIFEDIPINE 0.2% PR; +ONDA4; +PSYSENPA
[2023-05-04] MEDS ORDERED: IMITREX50 M1 PO (07:01)
[2023-05-04] MEDS ORDERED: MIRALAX17 GM PO (07:01)
--- NOTE | 2023-05-04 07:24 | NUR ---
History, Chart, Medications and Allergies reviewed before start of procedure. Ambulatory in Day Surgery. Pre-Op teaching done. Pt verbalizes understanding. Patient agrees with scheduled surgery. Patient mistakenly took "a sip" of coffee with cream this am prior to remembering NPO. Anesthesiologist & surgeon notified. Okay to proceed. Lungs clear T/O to Auscultation. Patient States Post-Procedure ride home has been arranged.
--- NOTE | 2023-05-04 10:44 | NUR ---
Patient up to Ambulate independently. Gait steady. Discharge instructions reviewed with patient. Patient verbalizes understanding. Copy given to patient to take home. Discharged via wheelchair to private car for ride home.
== END 2023-05-04 10:44 | disposition home or self-care (01) ==
LOC: ORSCMMR 06:23 → ORD 08:00 → ORSCMMR 08:00
PROVIDERS: Surgery
PROC: 0D8R0ZZ Division of Anal Sphincter, Open Approach (ICD-10-PCS; principal; 2023-05-04 08:00)
DX: K60.2 Anal fissure, unspecified (principal); J45.909 Unspecified asthma, uncomplicated; F41.8 Other specified anxiety disorders; Z79.899 Other long term (current) drug therapy
CPT/HCPCS: A9270; J1100; J2250; J2405; J2704; J3010; J7120

== ENCOUNTER → 2024-11-06 | Outpatient (CLI) | payer MEDICARE, OTHER ==
[~2024-11-06] MED LIST changes: +IMITREX50 M1 PO; +MIRALAX17 GM PO
[2024-11-08 18:57] LABS: HSV 1 SUBTYPE BY PCR Not Detected; HSV 2 SUBTYPE BY PCR Detected; HSV SUBTYPE SOURCE RIGHT BUTTOCK
[2024-11-09 03:48] LABS: VARICELLA-ZOSTER VIRUS BY PCR Not Detected; VARICELLA-ZOSTER VIRUS SOURCE RIGHT BUTTOCK
== END ==
LOC: LAB 14:03 → LAB SHORT 14:03
PROVIDERS: Physician Assistant
DX: B00.9 Herpesviral infection, unspecified (principal)
CPT/HCPCS: 87529; 87798

== ENCOUNTER 2024-12-25 02:42 | Day surgery (SDC) | payer MEDICARE, OTHER ==
--- NOTE | 2024-12-25 08:46 | NUR ---
NO CHARGE PATIENTS ORDERS WAS MISSING HER PRE-MEDS. UNABLE TO GET IN TOUCH WITH PROVIDER OR [facility] [place] TO OBTAIN A COPY OF THE ORDERS. APPOINTMENT TODAY WAS CANCELLED AND RESCHEDULED FOR NEXT MONDAY. PT REPORTS HAVING A HX OF REACTIONS TO [facility] AND WAS ADVISED TO ALWAYS TAKE HER PRE-MEDS.
== END 2024-12-25 23:00 | disposition home or self-care (01) ==
LOC: ATC 02:42
DX: M35.2 Behcet's disease (principal)

== ENCOUNTER 2025-01-06 00:45 | Day surgery (SDC) | payer MEDICARE, OTHER ==
[2025-01-06 08:55] VITALS: BP 146/103
== END 2025-01-06 11:42 | disposition home or self-care (01) ==
LOC: ATC 00:45
DX: M35.2 Behcet's disease (principal); D84.821 Immunodeficiency due to drugs; M15.0 Primary generalized (osteo)arthritis; G89.4 Chronic pain syndrome; Z79.52 Long term (current) use of systemic steroids; Z79.631 Long term (current) use of antimetabolite agent; Z79.899 Other long term (current) drug therapy
CPT/HCPCS: 96413; 96415; A9270; J2919; J7050; Q5104

== ENCOUNTER 2025-06-01 18:51 | Observation (INO) | payer MEDICARE, OTHER ==
[~2025-06-01] VITALS: Ht 149.9 cm; Wt 68.3 kg
[2025-06-01 20:02] LABS: BASOPHILS ABSOLUTE AUTO 0.09 K/mm3 (0.00-0.23); BASOPHILS PERCENT AUTO 0 % (0-2); EOSINOPHILS ABSOLUTE AUTO 0.10 K/mm3 (0.00-0.68); EOSINOPHILS PERCENT AUTO 0 % (0-6); Hematocrit 39.2 % (33.0-51.0); Hemoglobin 13.1 g/dL (11.5-16.0); IMMATURE GRAN ABSOLUTE AUTO 1.02 K/mm3 (0.00-0.10); IMMATURE GRAN PERCENT AUTO 3 % (0-1); LYMPHOCYTES ABSOLUTE AUTO 3.77 K/mm3 (0.84-5.20); LYMPHOCYTES PERCENT AUTO 13 % (21-46); MONOCYTES ABSOLUTE AUTO 2.47 K/mm3 (0.16-1.47); MONOCYTES PERCENT AUTO 8 % (4-13); Mean Corpuscular HGB Conc 33.4 g/dL (31.5-36.5); Mean Corpuscular Volume 89 fL (80-100); NEUTROPHILS ABSOLUTE AUTO 22.12 K/mm3 (1.96-9.15); NEUTROPHILS PERCENT AUTO 75 % (41-73); NRBC ABSOLUTE 0.03 K/mm3 (0.00-0.02); NRBC Auto 0.1 /100 WBC (0.0-0.2); Platelet Count 250 K/mm3 (150-400); RDW Coefficient Variation 14.0 % (11.7-14.2); RDW Standard Deviation 44.7 fL (35.1-46.3)
[2025-06-01 20:23] LABS: Alanine Aminotransfer (ALT/SGP 27.0 U/L (12-78); Albumin, Blood 3.3 g/dL (3.4-5.0); Albumin/Globulin Ratio 0.9 (0.8-1.8); Anion Gap 7.0 mmol/L (3-11); Aspartate Aminotrans (AST/SGOT 10.0 U/L (12-37); Bilirubin, Total 0.4 mg/dL (0.1-1.0); Blood Urea Nitrogen 11.0 mg/dL (8-24); CO2, Blood 29.0 mmol/L (21-32); Calcium, Blood 8.6 mg/dL (8.5-10.1); Chloride, Blood 101.0 mmol/L (98-108); Creatinine, Blood 0.57 mg/dL (0.40-1.00); Globulin, Blood 3.5 g/dL (2.2-4.0); Glucose, Blood 104.0 mg/dL (70-99); Potassium, Blood 3.3 mmol/L (3.5-5.5); Sodium, Blood 134.0 mmol/L (136-145); Total Protein, Blood 6.8 g/dL (6.4-8.2)
[2025-06-01] MEDS ORDERED: Morphine Sulfate 4 MG/1 ML Injection IV ONE (21:05)
[2025-06-01] MEDS ORDERED: Ondansetron HCl 2 MG / ML 2ML Vial IV ONE (22:25)
[2025-06-01] MEDS ORDERED: Piperacillin/Tazobactam Sod 3.375 GM in NS 100 ML IV ONE (22:25)
[2025-06-01] MEDS ORDERED: HYDROmorphone HCl/Pf 1MG SYR IV ONE (22:25)
[2025-06-02] MEDS ORDERED: HYDROmorphone HCl/Pf 1MG SYR ONE (00:09)
[2025-06-02] MEDS ORDERED: HYDROmorphone HCl/Pf 1MG SYR IV ONE ×2 (00:10→01:35)
[2025-06-02] MEDS ORDERED: Vancomycin (Pharmacy Consult) IV PRN (00:55)
[2025-06-02 01:54] LABS: Source, Urine Clean Catch
[2025-06-02 01:58] LABS: Bilirubin, Urine Neg (Neg); Glucose Qualitative, Urine Neg (Neg); Ketones, Urine Neg (Neg); Leukocyte Esterase, Urine 1+ (Neg); Protein, Urine 1+ (Neg); Specific Gravity, Urine 1.010 (1.003-1.022); Urobilinogen, Urine NORM (Normal)
[2025-06-02 02:01] LABS: Color, Urine Yellow (P-Yellow)
[2025-06-02 02:08] LABS: Red Blood Cells, Urine 0-2 /hpf (0-2)
[2025-06-02] MEDS ORDERED: FLU VACC TS2025-26(6MOS UP)/PF 45 MCG/0.5 ML SYRINGE IM SCH (02:15)
[2025-06-02] MEDS ORDERED: HYDROmorphone HCl/Pf 1MG SYR IV PRN (02:15)
[2025-06-02] MEDS ORDERED: Vancomycin (Pharmacy Consult) IV SCH (02:20)
[2025-06-02] MEDS ORDERED: Naloxone HCl 0.4MG / ML 1ML Vial IV PRN ×2 (02:20→04:40)
[2025-06-02] MEDS ORDERED: Potassium Chl 10MEQ/Water100ML 100 ML IV ONE (03:30)
[2025-06-02 04:29] VITALS: BP 121/91
[2025-06-02] MEDS ORDERED: Ketorolac Tromethamine 30mg Vial IV ONE (05:00)
[2025-06-02] MEDS ORDERED: Piperacillin/Tazobactam Sod 3.375 GM in NS 100 ML IV SCH (06:00)
[2025-06-02 06:12] LABS: BASOPHILS ABSOLUTE AUTO 0.15 K/mm3 (0.00-0.23); BASOPHILS PERCENT AUTO 1 % (0-2); EOSINOPHILS ABSOLUTE AUTO 0.10 K/mm3 (0.00-0.68); EOSINOPHILS PERCENT AUTO 0 % (0-6); Hematocrit 38.9 % (33.0-51.0); Hemoglobin 13.0 g/dL (11.5-16.0); IMMATURE GRAN ABSOLUTE AUTO 0.69 K/mm3 (0.00-0.10); IMMATURE GRAN PERCENT AUTO 2 % (0-1); LYMPHOCYTES ABSOLUTE AUTO 3.32 K/mm3 (0.84-5.20); LYMPHOCYTES PERCENT AUTO 11 % (21-46); MONOCYTES ABSOLUTE AUTO 2.07 K/mm3 (0.16-1.47); MONOCYTES PERCENT AUTO 7 % (4-13); Mean Corpuscular HGB Conc 33.4 g/dL (31.5-36.5); Mean Corpuscular Volume 87 fL (80-100); NEUTROPHILS ABSOLUTE AUTO 24.23 K/mm3 (1.96-9.15); NEUTROPHILS PERCENT AUTO 79 % (41-73); NRBC ABSOLUTE 0.00 K/mm3 (0.00-0.02); NRBC Auto 0.0 /100 WBC (0.0-0.2); Platelet Count 202 K/mm3 (150-400); RDW Coefficient Variation 14.2 % (11.7-14.2); RDW Standard Deviation 44.4 fL (35.1-46.3)
[2025-06-02 06:52] LABS: Alanine Aminotransfer (ALT/SGP 21.0 U/L (12-78); Albumin, Blood 2.6 g/dL (3.4-5.0); Albumin/Globulin Ratio 0.8 (0.8-1.8); Anion Gap 7.0 mmol/L (3-11); Aspartate Aminotrans (AST/SGOT 10.0 U/L (12-37); Bilirubin, Total 0.7 mg/dL (0.1-1.0); Blood Urea Nitrogen 11.0 mg/dL (8-24); CO2, Blood 28.0 mmol/L (21-32); Calcium, Blood 8.3 mg/dL (8.5-10.1); Chloride, Blood 103.0 mmol/L (98-108); Creatinine, Blood 0.58 mg/dL (0.40-1.00); Globulin, Blood 3.2 g/dL (2.2-4.0); Glucose, Blood 88.0 mg/dL (70-99); Potassium, Blood 3.7 mmol/L (3.5-5.5); Sodium, Blood 134.0 mmol/L (136-145); Total Protein, Blood 5.8 g/dL (6.4-8.2)
[2025-06-02 06:57] VITALS: BP 121/91
[2025-06-02 07:21] VITALS: BP 105/77
--- NOTE | 2025-06-02 07:56 | NUR ---
NURSE'S NOTE; PT TOA TO ROOM AT APPROX 0415 FROM ED. PT ORIENTED TO ROOM AND CALL LIGHT SYSTEM. PT IN SEVERE PAIN. CONTACTED DR. ISABEL VIA PHONE FOR MEDICATION ORDER. PT MEDICATED PER EMAR. INITIAL ASSESSMENT COMPLETED. PT KEPT NPO. REPORT GIVEN TO NACHO Baker/ KEVEN LORENZO PRIOR TO PT TRANSFER. BED IN LOWEST POSITION AND CALL LIGHT WITHIN REACH.
[2025-06-02] MEDS ORDERED: OxyCODONE 5 mg/Acetamin 325 mg TABLET PO ONE (08:20)
[2025-06-02] MEDS ORDERED: FentaNYL Citrate 50 MCG/ML 2 ML Injection IV STA (08:59)
[2025-06-02] MEDS ORDERED: Lactobacil 2-S.Thermo-Bifido 1 1 Cap PO SCH (09:00)
--- NOTE | 2025-06-02 09:12 | NUR ---
PATIENT TRANSFERED TO [facility] IN [place] VIA [facility]. REPORT WAS CALLED BY COLORING MACHINE OPERATOR RN OLGA LIDIA. PATIENT MEDICATED FOR STEPHANIE PRIOR TO LEAVING WITH MINIMAL RELIEF. PATIENT TRANSFERED WITH [facility], O2 SATS GREATER THAN 90%. PATIENT SPOKE WITH HER MOTHER AND SON PRIOR TO LEAVING. FELICIA SENT WITH PATIENT.
== END 2025-06-02 09:05 | disposition short-term general hospital (02) ==
LOC: ER 18:51 → MEDS 18:52 → ERHOLD 18:52 → MEDS 06-02 04:15
PROVIDERS: Physician Assistant; Student in an Organized Health Care Education/Training Program; ADMIT Student in an Organized Health Care Education/Training Program
DX: T81.49XA Infection following a procedure, other surgical site, initial encounter (principal); L02.212 Cutaneous abscess of back [any part, except buttock and flank]; T81.44XA Sepsis following a procedure, initial encounter; M35.2 Behcet's disease; K59.00 Constipation, unspecified; E87.6 Hypokalemia; Z79.52 Long term (current) use of systemic steroids; Z79.899 Other long term (current) drug therapy
CPT/HCPCS: 36415; 51702; 72132; 80053; 81001; 83605; 83735; 84703; 85025; 87086; 93005; 93010; 96365-59; 96366; 96366-59; 96367-59; 96375; 96376; 96376-59; 99285-25; A9270; G0378; J1171; J1885; J2270; J2405; J2543; J3010; J3373; J3480; J7050; J7120; Q9967

== ENCOUNTER 2025-06-14 01:01 | Day surgery (SDC) | payer MEDICARE, OTHER ==
[~2025-06-14 01:01] MED LIST changes: +CefTRIAXone Sodium 2,000 MG in NS 100 ML IV SCH
[2025-06-14 10:30] VITALS: BP 103/88
== END 2025-06-14 10:58 | disposition home or self-care (01) ==
LOC: ATC 01:01
DX: A41.01 Sepsis due to Methicillin susceptible Staphylococcus aureus (principal); J45.909 Unspecified asthma, uncomplicated; Z79.899 Other long term (current) drug therapy
CPT/HCPCS: 96365; J0696

== ENCOUNTER 2025-06-17 12:21 | Day surgery (SDC) | payer MEDICARE, OTHER ==
[2025-06-17 10:39] VITALS: BP 110/83
[~2025-06-17 12:21] MED LIST changes: +CefTRIAXone Sodium 2,000 MG in NS 100 ML IV SCH
== END 2025-06-17 23:00 | disposition home or self-care (01) ==
LOC: ATC 12:21
DX: A41.01 Sepsis due to Methicillin susceptible Staphylococcus aureus (principal); M35.2 Behcet's disease; K21.9 Gastro-esophageal reflux disease without esophagitis; J45.909 Unspecified asthma, uncomplicated; Z79.52 Long term (current) use of systemic steroids; Z79.631 Long term (current) use of antimetabolite agent; Z79.899 Other long term (current) drug therapy; R30.0 Dysuria
CPT/HCPCS: 87086; 96365; J0696

== ENCOUNTER → 2025-06-17 | Outpatient (CLI) | payer MEDICARE, OTHER ==
[~2025-06-17] MED LIST changes: -CefTRIAXone Sodium 2,000 MG in NS 100 ML IV SCH
== END | disposition home or self-care (01) ==
LOC: LAB SHORT 18:23 → LAB 18:23
DX: R30.0 Dysuria (principal)
CPT/HCPCS: 87086

== ENCOUNTER 2025-06-18 05:26 | Day surgery (SDC) | payer MEDICARE, OTHER ==
[~2025-06-18 05:26] MED LIST changes: -CefTRIAXone Sodium 2,000 MG in NS 100 ML IV SCH
[2025-06-18] MEDS ORDERED: CefTRIAXone Sodium 2,000 MG in NS 100 ML IV SCH (06:00)
[2025-06-18 10:19] VITALS: BP 127/87
== END 2025-06-18 10:44 | disposition home or self-care (01) ==
LOC: ATC 05:26
DX: A41.01 Sepsis due to Methicillin susceptible Staphylococcus aureus (principal); M35.2 Behcet's disease; K21.9 Gastro-esophageal reflux disease without esophagitis; M19.90 Unspecified osteoarthritis, unspecified site; Z79.631 Long term (current) use of antimetabolite agent; Z79.899 Other long term (current) drug therapy; Z98.1 Arthrodesis status
CPT/HCPCS: 96365; J0696

== ENCOUNTER 2025-06-19 00:45 | Day surgery (SDC) | payer MEDICARE, OTHER ==
[2025-06-19] MEDS ORDERED: CefTRIAXone Sodium 2,000 MG in NS 100 ML IV SCH (01:00)
[2025-06-19 13:00] VITALS: BP 108/80
[2025-06-19 15:34] LABS: BASOPHILS ABSOLUTE AUTO 0.17 K/mm3 (0.00-0.23); BASOPHILS PERCENT AUTO 2 % (0-2); EOSINOPHILS ABSOLUTE AUTO 0.30 K/mm3 (0.00-0.68); EOSINOPHILS PERCENT AUTO 3 % (0-6); Hematocrit 32.5 % (33.0-51.0); Hemoglobin 10.8 g/dL (11.5-16.0); IMMATURE GRAN ABSOLUTE AUTO 0.16 K/mm3 (0.00-0.10); IMMATURE GRAN PERCENT AUTO 1 % (0-1); LYMPHOCYTES ABSOLUTE AUTO 4.15 K/mm3 (0.84-5.20); LYMPHOCYTES PERCENT AUTO 36 % (21-46); MONOCYTES ABSOLUTE AUTO 1.07 K/mm3 (0.16-1.47); MONOCYTES PERCENT AUTO 9 % (4-13); Mean Corpuscular HGB Conc 33.2 g/dL (31.5-36.5); Mean Corpuscular Volume 88 fL (80-100); NEUTROPHILS ABSOLUTE AUTO 5.66 K/mm3 (1.96-9.15); NEUTROPHILS PERCENT AUTO 49 % (41-73); NRBC ABSOLUTE 0.00 K/mm3 (0.00-0.02); NRBC Auto 0.0 /100 WBC (0.0-0.2); Platelet Count 390 K/mm3 (150-400); RDW Coefficient Variation 13.9 % (11.7-14.2); RDW Standard Deviation 44.3 fL (35.1-46.3)
[2025-06-19 15:44] LABS: C-REACTIVE PROTEIN, EXT RANGE 0.363 mg/dL (0.000-0.300)
[2025-06-19 15:46] LABS: Alanine Aminotransfer (ALT/SGP 29.0 U/L (12-78); Albumin, Blood 3.0 g/dL (3.4-5.0); Albumin/Globulin Ratio 0.8 (0.8-1.8); Anion Gap 6.0 mmol/L (3-11); Aspartate Aminotrans (AST/SGOT 18.0 U/L (12-37); Bilirubin, Total 0.2 mg/dL (0.1-1.0); Blood Urea Nitrogen 6.0 mg/dL (8-24); CO2, Blood 29.0 mmol/L (21-32); Calcium, Blood 8.7 mg/dL (8.5-10.1); Chloride, Blood 107.0 mmol/L (98-108); Creatinine, Blood 0.57 mg/dL (0.40-1.00); Globulin, Blood 3.8 g/dL (2.2-4.0); Glucose, Blood 81.0 mg/dL (70-99); Potassium, Blood 3.9 mmol/L (3.5-5.5); Sodium, Blood 138.0 mmol/L (136-145); Total Protein, Blood 6.8 g/dL (6.4-8.2)
== END 2025-06-19 13:34 | disposition home or self-care (01) ==
LOC: ATC 00:45
PROVIDERS: Internal Medicine Infectious Disease
DX: A41.01 Sepsis due to Methicillin susceptible Staphylococcus aureus (principal); M35.2 Behcet's disease; K21.9 Gastro-esophageal reflux disease without esophagitis; G43.909 Migraine, unspecified, not intractable, without status migrainosus; Z79.899 Other long term (current) drug therapy; Z90.710 Acquired absence of both cervix and uterus
CPT/HCPCS: 80053; 85025; 86140; 96365; J0696

== ENCOUNTER 2025-06-20 02:39 | Day surgery (SDC) | payer MEDICARE, OTHER ==
[2025-06-20] MEDS ORDERED: CefTRIAXone Sodium 2,000 MG in NS 100 ML IV SCH (06:00)
[2025-06-20 10:18] VITALS: BP 127/87
== END 2025-06-20 10:42 | disposition home or self-care (01) ==
LOC: ATC 02:39
DX: A41.01 Sepsis due to Methicillin susceptible Staphylococcus aureus (principal); G43.909 Migraine, unspecified, not intractable, without status migrainosus; J45.909 Unspecified asthma, uncomplicated; M35.2 Behcet's disease; K21.9 Gastro-esophageal reflux disease without esophagitis; Z79.899 Other long term (current) drug therapy; Z90.710 Acquired absence of both cervix and uterus
CPT/HCPCS: 96365; J0696

== ENCOUNTER 2025-06-21 00:45 | Day surgery (SDC) | payer MEDICARE, OTHER ==
[2025-06-21] MEDS ORDERED: CefTRIAXone Sodium 2,000 MG in NS 100 ML IV SCH (01:00)
[2025-06-21 10:20] VITALS: BP 118/75
== END 2025-06-21 10:43 | disposition home or self-care (01) ==
LOC: ATC 00:45
DX: A41.01 Sepsis due to Methicillin susceptible Staphylococcus aureus (principal); M35.2 Behcet's disease; K21.9 Gastro-esophageal reflux disease without esophagitis; G43.909 Migraine, unspecified, not intractable, without status migrainosus; J45.909 Unspecified asthma, uncomplicated; Z79.899 Other long term (current) drug therapy; Z90.710 Acquired absence of both cervix and uterus
CPT/HCPCS: 96365; J0696

== ENCOUNTER 2025-06-22 00:17 | Day surgery (SDC) | payer MEDICARE, OTHER ==
[2025-06-22] MEDS ORDERED: CefTRIAXone Sodium 2,000 MG in NS 100 ML IV SCH (06:00)
--- NOTE | 2025-06-22 10:38 | NUR ---
PATIENT CALLED AND SAID THAT SHE IS HEADING TO [facility] BECAUSE HER SUTURE LINE IS SWOLLEN, RED AND PAINFUL X 2 DAYS.
== END 2025-06-23 23:00 | disposition home or self-care (01) ==
LOC: ATC 00:17
DX: A41.01 Sepsis due to Methicillin susceptible Staphylococcus aureus (principal); M35.2 Behcet's disease; D84.821 Immunodeficiency due to drugs; F12.90 Cannabis use, unspecified, uncomplicated; H73.019 Bullous myringitis, unspecified ear; I34.1 Nonrheumatic mitral (valve) prolapse; J45.909 Unspecified asthma, uncomplicated; K21.9 Gastro-esophageal reflux disease without esophagitis; K58.0 Irritable bowel syndrome with diarrhea; M48.062 Spinal stenosis, lumbar region with neurogenic claudication; M19.90 Unspecified osteoarthritis, unspecified site; Z79.52 Long term (current) use of systemic steroids; Z79.620 Long term (current) use of immunosuppressive biologic; Z79.631 Long term (current) use of antimetabolite agent; Z79.899 Other long term (current) drug therapy; Z98.1 Arthrodesis status; Z98.890 Other specified postprocedural states